=== PATIENT | male | born 1985 | race Caucasian/White ===

== ENCOUNTER 2017-05-22 04:47 | Emergency (ER) | payer OTHER ==
[~2017-05-22] VITALS: Ht 180.3 cm; Wt 176.9 kg
[~2017-05-22 04:47] MED LIST: AMOXICILLIN875 MG PO; FLAGYL500 MG PO; NOHOMEMEDICATIONS
[2017-05-22] MEDS ORDERED: OMEPRAZOLE40 MG (05:00)
[2017-05-22] MEDS ORDERED: ZANTAC 150MG T150 MG (05:00)
[2017-05-22 05:27] LABS: HEMOGLOBIN 14.2 gm/dL (14.0-18.0); MCH 28.1 pg (26.0-34.0); MCHC 33.7 g/dL (28.0-37.0); MCV 83.3 fL (80.0-100.0); MPV 6.7 fl. (7.2-11.1); NUCLEATED RBCS 0 /100WBC; PLATELET COUNT* 256 thou/uL (150-400); RBC 5.04 mil/uL (4.50-6.00); RDW-CV 14.5 % (10.5-14.5); WBC 9.3 thou/uL (4.0-11.0)
[2017-05-22 05:40] LABS: CALCIUM 8.1 mg/dL (8.5-10.1); CREATININE 1.2 mg/dL (0.6-1.3); POTASSIUM 3.9 mmol/L (3.5-5.1)
[2017-05-22 05:45] LABS: ALBUMIN 3.4 g/dL (3.4-5.0); TOTAL PROTEIN 6.8 g/dL (6.4-8.2)
[2017-05-22 06:11] LABS: INFLUENZA A ANTIGEN None Detected (None Detect); INFLUENZA B ANTIGEN None Detected (None Detect)
[2017-05-22 06:22] LABS: ABSOLUTE LYMPHOCYTES 0.6 thou/uL (0.8-5.3); ABSOLUTE MONOCYTES 0.2 thou/uL (0.0-1.2); ABSOLUTE NEUTROPHILS 8.6 thou/uL (1.6-8.1); ANISOCYTOSIS 1+; PLATELET ESTIMATE ADEQUATE; POIKILOCYTOSIS 1+
[2017-05-22] MEDS ORDERED: ZOFRAN ODT4 MG PO (06:57)
[2017-05-22 07:14] VITALS: BP 147/87
== END 2017-05-22 07:14 | disposition home or self-care (01) ==
LOC: M.ERS 04:47
PROVIDERS: Emergency Medicine
DX: B34.9 Viral infection, unspecified (principal); R11.2 Nausea with vomiting, unspecified; F17.210 Nicotine dependence, cigarettes, uncomplicated; F12.90 Cannabis use, unspecified, uncomplicated

== ENCOUNTER 2018-11-12 13:39 | Emergency (ER) | payer OTHER ==
[~2018-11-12] VITALS: Ht 177.8 cm; Wt 177.8 kg
[~2018-11-12 13:39] MED LIST changes: +OMEPRAZOLE40 MG; +ZANTAC 150MG T150 MG; +ZOFRAN ODT4 MG PO
[2018-11-12] MEDS ORDERED: ROBAXIN 750 MG750 MG PO (15:37)
[2018-11-12] MEDS ORDERED: LIDODERM1 EACH TRANSDERM (15:37)
[2018-11-12] MEDS ORDERED: ACETAMINOPHEN-1 EAC1 PO (15:37)
[2018-11-12 15:52] VITALS: BP 122/68
== END 2018-11-12 15:52 | disposition home or self-care (01) ==
LOC: M.ERS 13:39
DX: M54.5 Low back pain (principal); R10.2 Pelvic and perineal pain; F17.210 Nicotine dependence, cigarettes, uncomplicated